=== PATIENT | female | born 1995 | race African-American/Black ===

== ENCOUNTER 2019-07-07 16:09 | Emergency (ER) | payer OTHER ==
--- NOTE | 2019-07-07 16:15 | NUR ---
CALLED IN WAITING ROOM. NO RESPONSE.
== END 2019-07-07 16:21 | disposition left against medical advice (07) ==
LOC: ER 16:13
DX: R51 Headache (principal); Z53.21 Procedure and treatment not carried out due to patient leaving prior to being seen by health care provider